=== PATIENT | female | born 1955 | race African-American/Black ===

== ENCOUNTER 2021-09-12 08:40 | Day surgery (SDC) | payer OTHER ==
[2021-09-11 14:40] VITALS: BMI 30.5
[2021-09-12] MEDS ORDERED: LIDOCAINE HCL/PF 2% SDV 5ML VIAL ONE (09:18)
[2021-09-12] MEDS ORDERED: PROPOFOL 20 ML ONE (09:18)
[2021-09-12 10:45] VITALS: BP 121/74; PULSE 71; TEMP 97.4
== END 2021-09-12 10:47 | disposition home or self-care (01) ==
LOC: FASU-ENDO 08:40
PROVIDERS: ATTEND Internal Medicine Gastroenterology
PROC: 0DJD8ZZ Inspection of Lower Intestinal Tract, Via Natural or Artificial Opening Endoscopic (ICD-10-PCS; principal; 2021-09-12 09:50)
DX: Z12.11 Encounter for screening for malignant neoplasm of colon (principal)
CPT/HCPCS: 82962